=== PATIENT | female | born 1950 | race Hispanic/Latino ===

== ENCOUNTER 2022-06-11 14:35 | Inpatient (IN) | payer MEDICARE ==
[~2022-06-11] VITALS: Ht 157.5 cm; Wt 56.7 kg
[2022-06-11] MEDS ORDERED: ASPIRIN 81 MG CHEW TAB PO ONE ×2 (15:15→16:30)
[2022-06-11 15:23] LABS: BASOPHILS % 0.1 % (0.0-1.0); EOSINOPHILS % 0.4 % (0.0-6.0); HEMATOCRIT 41.5 % (34.2-44.1); HEMOGLOBIN 13.9 g/dL (12.0-16.0); LYMPHOCYTES # (AUTO) 1.4 (1.0-3.2); LYMPHOCYTES % 16.9 % (18.0-39.1); MEAN CORPUSCULAR HGB CONC 33.5 g/dL (31-35); MEAN CORPUSCULAR VOLUME 95.4 fL (81-99); MONOCYTES # (AUTO) 0.8 (0.2-0.8); MONOCYTES % 9.8 % (4.4-11.3); NEUTROPHILS # (AUTO) 6.1 (2.1-6.9); NEUTROPHILS % 72.3 % (38.7-80.0); PLATELET COUNT 503 x10e3/uL (140-360); RED BLOOD COUNT 4.35 x10e6/uL (3.6-5.1); RED CELL DISTRIBUTION WIDTH 13.2 % (11.7-14.4)
[2022-06-11 15:35] LABS: ALBUMIN 2.9 g/dL (3.5-5.0); ALBUMIN/GLOBULIN RATIO 0.5 (0.8-2.0); ANION GAP 21.2 mmol/L (8-16); CALCIUM 9.4 mg/dL (8.4-10.2); CREATININE, SERUM 1.79 mg/dL (0.57-1.11); POTASSIUM 3.2 mmol/L (3.5-5.1)
[2022-06-11 15:42] LABS: CREATINE KINASE MB 0.9 ng/mL (0-5.0)
[2022-06-11] MEDS ORDERED: ONDANSETRON HCL INJ 2MG/ML 2ML 2 MG/ML VIAL IV PRN (16:30)
[2022-06-11] MEDS ORDERED: ENOXAPARIN SOD INJ 40 MG/0.4 ML SYR SC STA (16:37)
[2022-06-11] MEDS: SODIUM CHLORIDE 0.9% 1000ML 1,000 ML IV SCH (18:00)
[2022-06-11] MEDS ORDERED: HYDROCODONE/APAP 5MG-325MG TAB PO ONE (19:15)
[2022-06-11 20:50] VITALS: BP 146/67
[2022-06-12] VITALS (7 sets, daily range): BP systolic 117–156; BP diastolic 69–87
[2022-06-12 01:04] LABS: CREATINE KINASE MB 1.1 ng/mL (0-5.0)
[2022-06-12] MEDS: SODIUM CHLORIDE 0.9% 1000ML 1,000 ML IV SCH ×2 (05:22→19:10)
[2022-06-12 07:54] LABS: CREATINE KINASE MB 1.2 ng/mL (0-5.0)
[2022-06-12] MEDS ORDERED: ACETAMINOPHEN 325 MG TAB PO PRN (08:45)
[2022-06-12] MEDS ORDERED: ONDANSETRON HCL INJ 2MG/ML 2ML 2 MG/ML VIAL IV PRN (08:45)
[2022-06-12] MEDS ORDERED: HYDRALAZINE HCL 20 MG/ML VIAL IV PRN (08:45)
[2022-06-12] MEDS: SENNA-S TABLET PO SCH ×2 (09:25→17:04)
[2022-06-12 15:17] LABS: COLOR,URINE YELLOW (YELLOW); LEUKOCYTE ESTERASE ,URINE TRACE (NEGATIVE); NITRITE,URINE NEGATIVE (NEGATIVE); PROTEIN,URINE DIPSTICK TRACE (NEGATIVE)
[2022-06-12 15:18] LABS: CLARITY,URINE SL CLOUDY (CLEAR); KETONES,URINE NEGATIVE (NEGATIVE); URINE UROBILINOGEN 1 mg/dL (0.2 - 1)
[2022-06-12 15:29] LABS: BACTERIA,URINE MODERATE /HPF; RBC,URINE 0-5 /HPF (0-5); WBC,URINE (MAN) 0-5 /HPF (0-5)
[2022-06-12] MEDS: FAMOTIDINE 20 MG TAB PO SCH (16:30)
[2022-06-13] VITALS (8 sets, daily range): BP systolic 126–190; BP diastolic 70–89
[2022-06-13 05:59] LABS: BASOPHILS # (AUTO) 0.1 (0.0-0.1); BASOPHILS % 0.7 % (0.0-1.0); EOSINOPHILS # (AUTO) 0.2 (0.0-0.4); EOSINOPHILS % 2.4 % (0.0-6.0); HEMATOCRIT 37.1 % (34.2-44.1); HEMOGLOBIN 12.4 g/dL (12.0-16.0); LYMPHOCYTES # (AUTO) 1.4 (1.0-3.2); LYMPHOCYTES % 19.9 % (18.0-39.1); MEAN CORPUSCULAR HEMOGLOBIN 32.5 pg (28-32); MEAN CORPUSCULAR HGB CONC 33.4 g/dL (31-35); MEAN CORPUSCULAR VOLUME 97.1 fL (81-99); MONOCYTES # (AUTO) 0.7 (0.2-0.8); MONOCYTES % 10.2 % (4.4-11.3); NEUTROPHILS # (AUTO) 4.6 (2.1-6.9); NEUTROPHILS % 66.5 % (38.7-80.0); PLATELET COUNT 475 x10e3/uL (140-360); RED BLOOD COUNT 3.82 x10e6/uL (3.6-5.1); RED CELL DISTRIBUTION WIDTH 13.3 % (11.7-14.4)
[2022-06-13 06:23] LABS: ANION GAP 14.1 mmol/L (8-16); CALCIUM 8.7 mg/dL (8.4-10.2); CREATININE, SERUM 0.81 mg/dL (0.57-1.11); POTASSIUM 3.1 mmol/L (3.5-5.1)
[2022-06-13] MEDS: FAMOTIDINE 20 MG TAB PO SCH ×2 (07:56→17:52)
[2022-06-13] MEDS: SODIUM CHLORIDE 0.9% 1000ML 1,000 ML IV SCH ×2 (07:56→20:38)
[2022-06-13] MEDS: SENNA-S TABLET PO SCH ×2 (08:01→17:53)
[2022-06-13] MEDS: HYDROCODONE/APAP 5MG-325MG TAB PO PRN ×2 (09:46→16:16)
[2022-06-13] MEDS ORDERED: POTASSIUM CHLORIDE 10MEQ EA PO ONE (10:00)
[2022-06-13] MEDS ORDERED: ONDANSETRON HCL 4 MG ORAL DISINTEGRATING TAB PO PRN (11:45)
[2022-06-13] MEDS ORDERED: ENOXAPARIN SOD INJ 40 MG/0.4 ML SYR SC SCH (17:00)
[2022-06-14 00:14] VITALS: BP 164/76
[2022-06-14 05:56] VITALS: BP 158/88
[2022-06-14 07:52] VITALS: BP 180/87
[2022-06-14 08:00] VITALS: BP 180/87
[2022-06-14] MEDS: HYDROCODONE/APAP 5MG-325MG TAB PO PRN (08:00)
[2022-06-14] MEDS: SENNA-S TABLET PO SCH (08:11)
[2022-06-14] MEDS: FAMOTIDINE 20 MG TAB PO SCH (08:11)
[2022-06-14] MEDS ORDERED: NIFEDIPINE CR 30 MG TAB PO ONE (08:45)
[2022-06-14 11:09] VITALS: BP 164/89
[2022-06-14 15:45] VITALS: BP 160/91
== END 2022-06-14 15:40 | disposition home or self-care (01) | DRG 564 ==
LOC: ER 14:52 → ERHOLD 16:27 → MED/SURG 20:15
PROVIDERS: ADMIT Internal Medicine; ATTEND Internal Medicine
DX: M25.462 Effusion, left knee (principal); N17.0 Acute kidney failure with tubular necrosis; R07.9 Chest pain, unspecified; E78.5 Hyperlipidemia, unspecified; M17.0 Bilateral primary osteoarthritis of knee; M25.461 Effusion, right knee; E86.0 Dehydration; I12.9 Hypertensive chronic kidney disease with stage 1 through stage 4 chronic kidney disease, or unspecified chronic kidney disease; N18.9 Chronic kidney disease, unspecified; Z20.822 Contact with and (suspected) exposure to COVID-19
CPT/HCPCS: 0223U; 36415; 71045; 78580; 80048; 80053; 81001; 82550; 82553; 82948; 84484; 84550; 85025; 85379; 87086; 93005; 93970; 99284; A9540; J0360; J0696; J1650; J7030